=== PATIENT | male | born 1960 | race African-American/Black ===

== ENCOUNTER 2017-10-19 13:16 | Emergency (ER) | payer MEDICARE ==
[~2017-10-19] VITALS: Ht 185.4 cm; Wt 70.3 kg
[2017-10-19] MEDS ORDERED: CYCLOBENZAPRINE10 MG ORAL (14:01)
[2017-10-19] MEDS ORDERED: TRAMADOL HCL50 MG ORAL (14:01)
[2017-10-19 14:02] VITALS: BP 109/76
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
[2017-10-19 14:29] VITALS: BP 109/76
== END 2017-10-19 14:29 | disposition home or self-care (01) ==
LOC: EMR 14:02
DX: S80.12XA Contusion of left lower leg, initial encounter (principal); I10 Essential (primary) hypertension; M54.9 Dorsalgia, unspecified; V43.52XA Car driver injured in collision with other type car in traffic accident, initial encounter; Y92.410 Unspecified street and highway as the place of occurrence of the external cause
CPT/HCPCS: 99284